=== PATIENT | female | born 1970 | race Caucasian/White ===

== ENCOUNTER → 2021-06-01 11:28 | Outpatient (CLI) | payer OTHER, SELFPAY ==
--- NOTE | ~2021-06-01 | MM_ITS ---
EXAMINATION: MM screening flaquita BI w aidan HISTORY: Screening TECHNIQUE: Craniocaudal and mediolateral oblique 3-D tomosynthesis images were obtained and synthetic 2-D images were generated. CAD analysis was submitted and interpreted. COMPARISON: Comparison to multiple prior studies sequentially, with oldest reviewed study dated 03/27. BREAST PARENCHYMAL COMPOSITION: The breasts are heterogenously dense, which may obscure small masses. FINDINGS: There is a mass in the upper inner quadrant of the right breast, middle third. The left maritza ast is stable without evidence for malignancy. IMPRESSION: 1. Mass in the upper inner quadrant of the right breast, middle third. 2. Additional mammographic views and possible breast ultrasound are recommended. BI-RADS Category 0: Incomplete: Needs additional imaging evaluation. Reviewed, dictated and finalized at location A. BULATORY CARE COORDINATOR IMPRESSION: 1. Mass in the upper inner quadrant of the right breast, middle third. 2. Additional mammographic views and possible breast ultrasound are recommended . BI-RADS Category 0: Incomplete: Needs additional imaging evaluation.
== END ==
PROVIDERS: Visit Provider Nurse Practitioner Obstetrics & Gynecology
DX: Z12.31 Encounter for screening mammogram for malignant neoplasm of breast (principal); R92.8 Other abnormal and inconclusive findings on diagnostic imaging of breast
CPT/HCPCS: 77063; 77067

== ENCOUNTER → 2021-06-24 08:46 | Outpatient (CLI) | payer OTHER, SELFPAY ==
--- NOTE | ~2021-06-24 | MMUS_ITS ---
EXAMINATION: MM diagnostic flaquita RT w aidan, US breast RT limited HISTORY: Follow-up right breast mass TECHNIQUE: Additional 3-D tomosynthesis images of the right breast were performed and synthetic 2-D i mages were generated. CAD analysis was submitted and interpreted. High resolution Limited right breas t ultrasound was performed. COMPARISON: Comparison to multiple prior studies sequentially, with oldest reviewed study dated 03/28. BREAST PARENCHYMAL COMPOSITION: The breasts are heterogenously dense, which may obscure small masses. FINDINGS: MAMMOGRAPHIC FINDINGS: There is a mass in the upper slightly inner aspect of the right breast measuring 5.5 x 2.8 cm with ce ntral areas of lucency. There are no suspicious calcifications or architectural distortion. ULTRASOUND: Limited right breast ultrasound: At 1:00, 4 cm from the nipple there is a hypoechoic circumscribed ov al mass with parallel orientation, posterior acoustic enhancement and no internal vascularity measuri ng 3.3 x 1.3 x 3.6 cm corresponding to the mammographic finding. No other discrete masses are identif ied. IMPRESSION: 1. Solid-appearing oval hypoechoic mass of the right breast at 1:00, 4 cm from the nipple. 2. Ultrasound-guided right breast biopsy recommended. BI-RADS category 4, suspicious findings. Reviewed, dictated and finalized at location A. CTOR OF MEDICAL REVIEW IMPRESSION: 1. Solid-appearing oval hypoechoic mass of the right breast at 1:00, 4 cm from the nipple. 2. Ultrasound-guided right breast biopsy recommended. BI-RADS category 4, suspicious findings.
== END ==
PROVIDERS: Visit Provider Nurse Practitioner Obstetrics & Gynecology
DX: N63.12 Unspecified lump in the right breast, upper inner quadrant (principal)
CPT/HCPCS: 76642; 77061; 77065; G0279

== ENCOUNTER → 2023-08-23 11:23 | Outpatient (CLI) | payer BC, SELFPAY ==
--- NOTE | ~2023-08-23 | MM_ITS ---
EXAMINATION: MM screening flaquita BI w aidan HISTORY: Screening. History of benign biopsy in 2021. TECHNIQUE: Craniocaudal and mediolateral oblique 3-D tomosynthesis images were obtained and synthetic 2-D images were generated. CAD analysis was submitted and interpreted. COMPARISON: Comparison to multiple prior studies sequentially, with oldest reviewed study dated 10/2017. BREAST PARENCHYMAL COMPOSITION: Dense: The breasts are heterogeneously dense, which may obscure small masses FINDINGS: Stable mass of the right breast located in the upper inner quadrant, middle third. There is associated tissue marker consistent with interval benign biopsy. There are no new masses, calcificat ions or architectural distortion in either breast to suggest malignancy. IMPRESSION: 1. No mammographic evidence of malignancy. Stable benign right breast mass. 2. Recommend routine screening mammography in one year. BI-RADS Category 2: Benign finding(s). Reviewed, dictated and finalized at location A. INE WORKER
== END ==
PROVIDERS: PCP Family Medicine; Visit Provider Family Medicine
DX: Z12.31 Encounter for screening mammogram for malignant neoplasm of breast (principal)
CPT/HCPCS: 77063; 77067

== ENCOUNTER 2024-11-15 11:37 | Outpatient (CLI) | payer OTHER, SELFPAY ==
--- NOTE | ~2024-11-15 | MM_ITS ---
EXAMINATION: MM screening flaquita BI w aidan HISTORY: Screening TECHNIQUE: Craniocaudal and mediolateral oblique 3-D tomosynthesis images were obtained and synthetic 2-D images were generated. CAD analysis was submitted and interpreted. COMPARISON: Comparison to multiple prior studies sequentially, with oldest reviewed study dated 09/2018. BREAST PARENCHYMAL COMPOSITION: Dense: The breasts are heterogeneously dense, which may obscure small masses FINDINGS: The left breast is stable without evidence for malignancy. There is a stable mass in the upper inner quadrant of the right breast with tissue marker from previo us benign biopsy. There is a new mass in the upper outer quadrant of the right breast, middle third, seen on CC view. IMPRESSION: 1. New right breast mass, upper outer quadrant, middle third. 2. Additional mammographic views and possible breast ultrasound are recommended. BI-RADS Category 0: Incomplete: Needs additional imaging evaluation. Reviewed, dictated and finalized at location B. IMPRESSION: 1. New right breast mass, upper outer quadrant, middle third. 2. Additional mammographic views and possible breast ultrasound are recommended . BI-RADS Category 0: Incomplete: Needs additional imaging evaluation.
== END 2024-11-15 11:38 | disposition home or self-care (01) ==
LOC: MICIMG 11:39
PROVIDERS: PCP Obstetrics & Gynecology; Visit Provider Obstetrics & Gynecology
DX: Z12.31 Encounter for screening mammogram for malignant neoplasm of breast (principal); R92.8 Other abnormal and inconclusive findings on diagnostic imaging of breast
CPT/HCPCS: 77063; 77067

== ENCOUNTER 2024-12-03 08:17 | Outpatient (CLI) | payer OTHER, SELFPAY ==
--- NOTE | ~2024-12-03 | MMUS_ITS ---
EXAMINATION: MM diagnostic flaquita RT w aidan, US breast RT complete HISTORY: Follow-up new right breast mass. TECHNIQUE: Additional 3-D tomosynthesis images of the right breast were performed and synthetic 2-D i mages were generated. CAD analysis was submitted and interpreted. High resolution complete right tk st ultrasound was performed. COMPARISON: Comparison to multiple prior studies sequentially, with oldest reviewed study dated 09/2018. BREAST PARENCHYMAL COMPOSITION: Dense: The breasts are extremely dense, which lowers the sensitivity of mammography. FINDINGS: MAMMOGRAPHIC FINDINGS: There is a new mass in the upper outer quadrant of the right breast, middle third, best seen on CC vi ew. There is a large stable mass in the upper inner quadrant of the right breast with associated tiss ue marker from previous benign biopsy. This is stable. ULTRASOUND: Complete US of all 4 quadrants of the breast/s and retroareolar region was reviewed. Right breast: At 12:00, 5 cm from the nipple there is an oval hypoechoic mass with parallel orientati on measuring 2.8 x 1.7 x 3.2 cm, unchanged from prior examination. It was described at 1:00, 4 cm fro m the nipple on prior examination. At 10:00, 5 cm from the nipple there is an oval slightly irregular shaped hypoechoic mass measuring 11 x 11 x 7 mm with mixed posterior attenuation and no significant internal vascularity. This corresponds to the new mammographic mass. IMPRESSION: 1. New right breast mass at 10:00, 5 cm from the nipple measuring 11 mm. 2. Ultrasound-guided right breast biopsy recommended. BI-RADS category 4, suspicious findings. Reviewed, dictated and finalized at location [] IMPRESSION: 1. New right breast mass at 10:00, 5 cm from the nipple measuring 11 mm. 2. Ultrasound-guided right breast biopsy recommended. BI-RADS category 4, suspicious findings.
== END 2024-12-03 08:18 | disposition home or self-care (01) ==
PROVIDERS: PCP Student in an Organized Health Care Education/Training Program; Visit Provider Student in an Organized Health Care Education/Training Program
DX: R92.8 Other abnormal and inconclusive findings on diagnostic imaging of breast (principal); N63.11 Unspecified lump in the right breast, upper outer quadrant; R92.2 Inconclusive mammogram
CPT/HCPCS: 76641; 77061; 77065; G0279

== ENCOUNTER 2025-01-08 08:19 | Outpatient (CLI) | payer OTHER, SELFPAY ==
--- NOTE | ~2025-01-08 | MMUS_ITS ---
US breast biopsy RT w image, MM post biopsy diagnostic RT 01/08/2025 09:15 (accession [id number]), 01/08/2025 09:13 (accession [id number]) EXAMINATION: US GUIDED NEEDLE BIOPSY WITH VACUUM ASSISTANCE DATE: 01/08/2025 09:21 CDT INDICATION: New right breast mass seen on prior examination. Ultrasound-guided core biopsy is reques juan antonio to evaluate for malignancy. BREAST PARENCHYMAL COMPOSITION: Dense: The breasts are heterogeneously dense, which may obscure small masses TECHNIQUE AND FINDINGS: The risks and potential benefits of the procedure were discussed with the patient, and written inform ed consent was obtained. After sterile preparation of the right breast, 1% lidocaine was utilized fo r local anesthesia. 1% lidocaine with epinephrine was used for deep anesthesia. A 10G vacuum-assisted biopsy gun needle was advanced through to the outer edge of the region of inter est from a superior approach utilizing sonographic guidance. A total of 4 tissue core samples were o btained through the lesion. An Inrad tissue marker clip was then placed at the biopsy site. Hemostas is was achieved. The patient tolerated procedure well and there was no evidence of immediate complication. The patien t was given verbal instructions partly is from the department. Right breast mammograms to document t issue marker clip placement. The tissue samples were submitted to surgical pathology for histologic a nalysis. IMPRESSION: 1. Successful ultrasound-guided vacuum-assisted biopsy of right breast mass with post procedure mamm ogram for marker placement. Please refer to pathology report for histologic analysis. Reviewed, dictated and finalized at location [] IMPRESSION: 1. Successful ultrasound-guided vacuum-assisted biopsy of right breast mass wi th post procedure mammogram for marker placement. Please refer to pathology rep ort for histologic analysis.
--- OUTSIDE RECORDS SUMMARY | 2025-01-08 08:29 | XMS_ITS | Data Portability ---
Author Organization 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 Patient will come back in a year unless there are new symptoms. [email or web address] Not available 05/13/2021 10:32:00 05/02/2024 05/02/2024 Annual gynecological exam performed. Patient will come back in a year unless there are new symptoms. [email or web address] Not available 04/16/2024 11:52:32 Plan of Treatment Reminders Order Date Submit Date Provider Last Modified By Organization Details Last Modified Time Details Appointments None recorded. Lab pap, IG + HR HPV - HPV regardless but if HPV is positive need subtyping 16,18/45 2023 024 [facility] (Lab), [address], [place], [address], 5 05:01:21 lipid panel, blood 2023 024 [facility] (Lab), [address], [place], [address], 4 10:48:47 CBC w/ auto diff 2023 024 [facility] (Lab), [address] [place], [address], 4 10:48:45 TSH, serum or plasma 2023 024 [facility] (Lab), [address], [place], [address], 4 10:48:46 HbA1c (hemoglobin A1c), blood 2023 024 [facility] (Lab), [address], [place], [address], 4 10:48:48 CMP, serum or plasma 2023 024 [facility] (Lab), [address], [place], [address], 4 10:48:46 pap, IG + HR HPV - HPV regardless but if HPV is positive need subtyping 16,18/45 2023 024 [facility] (Lab), [address], [place], [address], 4 13:04:16 25-hydroxyv itamin D2 + 25-hydroxyv itamin D3, QN, serum or plasma 2023 024 [facility] (Lab), [address], [place], [address], 4 10:48:47 lipid panel, blood 2020 [facility] (Lab), [address], [place], [address], 1 03:40:27 CBC w/ auto diff 2020 021 [facility] (Lab), [address], [place], [address], 1 03:40:28 CMP, serum or plasma 2020 [facility] (Lab), [address], [place], [address], 1 03:40:27 vitamin D, 25-hydroxy, total, serum 2020 021 [facility] (Lab), [address], [place], [address], 03:40:28 HbA1c (hemoglobin A1c), blood 2020 021 [facility] (Lab), [address], [place], [address], 03:40:29 TSH, serum or plasma 2020 021 [facility] (Lab), [address], [place], [address], 03:40:28 Referral None recorded. Procedures None recorded. Surgeries None recorded. Imaging MAMMO, screening, digital, bilateral 2023 024 [facility], [address], [place] [address], [place], [address], 5 05:01:21 Medication Orders None recorded. Patient TargetsNo targets recorded. Patient InstructionsNo instructions recorded. Reason for Referral None Reported. Results Created Date Observation Date Name Description Value Unit Range Abnormal Flag Note LastModifiedBy Organization Detail LastModifiedTime 05/13/2005/13/2021 LIPID PANEL ,AMA (LDL- CALC) total cholesterol 189 mg/dL 0-199 Not Available [facility] (Lab) [address], [place], [address], 05/14/2021 03:40:27 05/13/20 21 05/13/2021 LIPID PANEL ,AMA (LDL- CALC) triglyceride s 89 mg/dL 0.00-1 50.00 NCEP Refer ence Value s for Trigl yceri elvis: Ayesha l: <150 mg/dL Borde rline High: 150 - 199 mg/dL High: 200 - 499 mg/dL Very High: >/= 500 mg/dL Not Available [facility] (Lab) [address] , [place], [address], 05/14/2021 03:40:27 05/13/20 21 05/13/2021 LIPID PANEL ,AMA (LDL- CALC) HDL cholesterol 48 mg/dL >40 Not Available [facility] (Lab) [address], [place], [address], 05/14/2021 03:40:27 05/13/20 21 05/13/2021 LIPID PANEL ,AMA (LDL- CALC) LDL cholesterol 123 mg/dL 0-99 high Cutof f value s recom sofia d by the Natio nal Arleth stero l Educa tion Progr am: MANDEEP ABLE: Arleth stero l <200 mg/dL LDL <100 mg/dL BORDE RLINE : Arleth stero l 200-2 39 mg/dL LDL 101-1 59 mg/dL HIGHE R RISK: Arleth stero l >240 mg/dL LDL >160 mg/dL , HDL <40 mg/dL Not Available [facility] (Lab) [address], [place], [address], 05/14/2021 03:40:27 05/13/20 21 05/13/2021 LIPID PANEL ,AMA (LDL- CALC) non-HDL cholesterol 141 mg/dL no refere nce range A reaso nable goal for non-H DL arleth stero l is one that is 30 mg/dL highe r than the LDL arleth stero l goal. Not Available [facility] (Lab) [address], [place], [address], 05/14/2021 03:40:27 05/13/20 21 05/13/2021 LIPID PANEL ,AMA (LDL- CALC) chol/HDL ratio 3.9 . 0.0-5. 0 Not Available [facility] (Lab) [address], [place], [address], 05/14/2021 03:40:27 05/13/20 21 05/13/2021 CMP(C OMPRE HENSI VE METAB OLIC PANEL ) sodium 138 mmol/ L 133-14 6 Not Available [facility] (Lab) [address], [place], [address], 05/14/2021 03:40:27 05/13/20 21 05/13/2021 CMP(C OMPRE HENSI VE METAB OLIC PANEL ) potassium 4.1 mmol/ L 3.5-5. 1 Not Available [facility] (Lab) [address], [place], [address], 05/14/2021 03:40:27 05/13/20 21 05/13/2021 CMP(C OMPRE HENSI VE METAB OLIC PANEL ) chloride 101 mmol/ L 98-107 Not Available [facility] (Lab) [address], [place], [address], 05/14/2021 03:40:27 05/13/20 21 05/13/2021 CMP(C OMPRE HENSI VE METAB OLIC PANEL ) carbon dioxide 29 mmol/ L 21-31 Not Available [facility] (Lab) [address], [place], [address], 05/14/2021 03:40:27 05/13/20 21 05/13/2021 CMP(C OMPRE HENSI VE METAB OLIC PANEL ) anion gap 8 mmol/ L 4-13 Not Available [facility] (Lab) [address], [place], [address], 05/14/2021 03:40:27 05/13/20 21 05/13/2021 CMP(C OMPRE HENSI VE METAB OLIC PANEL ) blood urea nitrogen 13 mg/dL 7-25 Not Available [facility] (Lab) [address], [place], [address], 05/14/2021 03:40:27 05/13/20 21 05/13/2021 CMP(C OMPRE HENSI VE METAB OLIC PANEL ) creatinine 1.01 mg/dL 0.60-1 .30 Not Available [facility] (Lab) [address], [place], [address], 05/14/2021 03:40:27 05/13/20 21 05/13/2021 CMP(C OMPRE HENSI VE METAB OLIC PANEL ) egfrcr (CKD-epi 2020) 69 mL/mi n/1.7 3_m2 >=60 Not Available [facility] (Lab) [address], [place], [address], 05/14/2021 03:40:27 05/13/20 21 05/13/2021 CMP(C OMPRE HENSI VE METAB OLIC PANEL ) calcium 9.2 mg/dL 8.3-10 .5 Not Available [facility] (Lab) [address], [place], [address], 05/14/2021 03:40:27 05/13/20 21 05/13/2021 CMP(C OMPRE HENSI VE METAB OLIC PANEL ) glucose 90 mg/dL 70-100 Not Available [facility] (Lab) [address], [place], [address], 05/14/2021 03:40:27 05/13/20 21 05/13/2021 CMP(C OMPRE HENSI VE METAB OLIC PANEL ) protein, total 6.6 g/dL 6.4-8. 3 Not Available [facility] (Lab) [address], [place], [address], 05/14/2021 03:40:27 05/13/20 21 05/13/2021 CMP(C OMPRE HENSI VE METAB OLIC PANEL ) albumin 4.3 g/dL 3.5-5. 0 Not Available [facility] (Lab) [address], [place], [address], 05/14/2021 03:40:27 05/13/20 21 05/13/2021 CMP(C OMPRE HENSI VE METAB OLIC PANEL ) ALT 8 units /L 9-43 low Not Available [facility] (Lab) [address] [place], [address], 05/14/2021 03:40:27 05/13/20 21 05/13/2021 CMP(C OMPRE HENSI VE METAB OLIC PANEL ) alkaline phosphatase 47 units /L 34-104 Not Available [facility] (Lab) [address], [place], [address], 05/14/2021 03:40:27 05/13/20 21 05/13/2021 CMP(C OMPRE HENSI VE METAB OLIC PANEL ) AST 12 units /L 13-39 low Not Available [facility] (Lab) [address], [place], [address], 05/14/2021 03:40:27 05/13/20 21 05/13/2021 CMP(C OMPRE HENSI VE METAB OLIC PANEL ) bilirubin, total 0.6 mg/dL 0.2-1. 2 Not Available [facility] (Lab) [address] [place], [address], 05/14/2021 03:40:27 05/13/20 21 05/13/2021 TSH, REFLE X FREE T4 TSH 1.92 uIU/m L 0.30-5 .33 Not Available [facility] (Lab) [address] [place], [address], 05/14/2021 03:40:27 05/13/20 21 05/13/2021 VITAM IN D, 25-OH (TOTA L D2/D3 ) vitamin D, 25-hydroxy, total 46.1 NG/mL 30-80 NOTE: Defic iency : <20 ng/mL Insuf ficie ncy: 20-29 ng/mL Optim um Level : 30-80 ng/mL Possi ble Toxic ity: >80 ng/mL Most patie nts with toxic ity have level s >150 ng/mL . Not Available [facility] (Lab) [address] [place], [address], 05/14/2021 03:40:28 05/13/20 21 05/13/2021 CBC W/DIF F WBC 5.3 10'3/ uL 3.6-10 .2 Not Available [facility] (Lab) [address], [place], [address], 05/14/2021 03:40:28 05/13/20 21 05/13/2021 CBC W/DIF F RBC 4.70 10'6/ uL (based on docume nted legal sex) 4.10-5 .30 Not Available [facility] (Lab) [address], [place], [address], 05/14/2021 03:40:28 05/13/20 21 05/13/2021 CBC W/DIF F HGB 13.3 g/dL (based on docume nted legal sex) 11.9-1 5.8 Not Available [facility] (Lab) [address], [place], [address], 05/14/2021 03:40:28 05/13/20 21 05/13/2021 CBC W/DIF F HCT 41.4 % (based on docume nted legal sex) 37.4-4 8.3 Not Available [facility] (Lab) [address], [place], [address], 05/14/2021 03:40:28 05/13/20 21 05/13/2021 CBC W/DIF F MCV 89.0 fL 82.0-9 9.0 Not Available [facility] (Lab) [address], [place], [address], 05/14/2021 03:40:28 05/13/20 21 05/13/2021 CBC W/DIF F MCH 28.0 pg 27.0-3 3.0 Not Available [facility] (Lab) [address], [place], [address], 05/14/2021 03:40:28 05/13/20 21 05/13/2021 CBC W/DIF F MCHC 32.0 g/dL 32.0-3 6.0 Not Available [facility] (Lab) [address], [place], [address], 05/14/2021 03:40:28 05/13/20 21 05/13/2021 CBC W/DIF F RDW 13.0 % 11.0-1 5.0 Not Available [facility] (Lab) [address], [place], [address], 05/14/2021 03:40:28 05/13/20 21 05/13/2021 CBC W/DIF F plt 248 10'3/ uL 150-45 0 Not Available [facility] (Lab) [address], [place], [address], 05/14/2021 03:40:28 05/13/20 21 05/13/2021 CBC W/DIF F MPV 10.8 fL 9.8-12 .7 Not Available [facility] (Lab) [address], [place], [address], 05/14/2021 03:40:28 05/13/20 21 05/13/2021 CBC W/DIF F NRBC's 0.00 % 0 Not Available [facility] (Lab) [address], [place], [address], 05/14/2021 03:40:28 05/13/20 21 05/13/2021 CBC W/DIF F absolute NRBCs 0.0 10'3/ uL 0 Not Available [facility] (Lab) [address], [place], [address], 05/14/2021 03:40:28 05/13/20 21 05/13/2021 CBC W/DIF F neutrophils 59.0 % 37.0-7 2.0 Not Available [facility] (Lab) [address], [place], [address], 05/14/2021 03:40:28 05/13/20 21 05/13/2021 CBC W/DIF F lymphocytes 29.0 % 16.0-4 8.0 Not Available [facility] (Lab) [address], [place], [address], 05/14/2021 03:40:28 05/13/20 21 05/13/2021 CBC W/DIF F monocytes 9.0 % 4.0-14 .0 Not Available [facility] (Lab) [address], [place], [address], 05/14/2021 03:40:28 05/13/20 21 05/13/2021 CBC W/DIF F eosinophils 2.0 % 0.0-9. 0 Not Available [facility] (Lab) [address], [place], [address], 05/14/2021 03:40:28 05/13/20 21 05/13/2021 CBC W/DIF F basophils 1.0 % 0.0-2. 0 Not Available [facility] (Lab) [address], [place], [address], 05/14/2021 03:40:28 05/13/20 21 05/13/2021 CBC W/DIF F immature granulocytes 0.0 % no define d refere nce range Not Available [facility] (Lab) [address], [place], [address], 05/14/2021 03:40:28 05/13/20 21 05/13/2021 CBC W/DIF F absolute neutrophils 3.2 10'3/ uL 1.1-6. 0 Not Available [facility] (Lab) [address] [place], [address], 05/14/2021 03:40:28 05/13/20 21 05/13/2021 CBC W/DIF F absolute lymphocytes 1.5 10'3/ uL 0.7-3. 4 Not Available [facility] (Lab) [address], [place], [address], 05/14/2021 03:40:28 05/13/20 21 05/13/2021 CBC W/DIF F absolute monocytes 0.5 10'3/ uL 0.3-1. 0 Not Available [facility] (Lab) [address], [place], [address], 05/14/2021 03:40:28 05/13/20 21 05/13/2021 CBC W/DIF F absolute eosinophils 0.1 10'3/ uL 0.0-0. 6 Not Available [facility] (Lab) [address], [place], [address], 05/14/2021 03:40:28 05/13/20 21 05/13/2021 CBC W/DIF F absolute basophils 0.0 10'3/ uL 0.0-0. 1 Not Available [facility] (Lab) [address], [place], [address], 05/14/2021 03:40:28 05/13/20 21 05/13/2021 CBC W/DIF F absolute immature granulocytes 0.00 10'3/ uL 0.00-0 .10 05/14 1:55 AM: P indic ates parti al resul ts on a panel have been relea sed. Addit ional resul ts will follo w. 05/14 1:55 AM: This resul t has been final verif ied. No addit ional or garnt ed resul ts are expec juan antonio. Not Available [facility] (Lab) [address], [place], [address], 05/14/2021 03:40:28 05/13/20 21 05/13/2021 HEMOG LOBIN A1C hemoglobin A1C 5.6 % 0-5.6 The Ameri can [employer] arlene [employer] iatio n recom mends that a prima ry goal of theranatoly lerner be a HBA1C of < 7% and that physi cians tabatha d reeva luate the treat ment regim en in patie nts with HBA1C value s consi stent ly > 8%. 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 Elect álvaro diaz d by Thalia Qureshi , CT on 05/20 at 12:41 PM ----- ----- ----- ----- ----- ----- ----- ----- ----- ----- ----- ----- ----- ----- ----- ----- ----- ---- HPV RESUL TS: HPV mRNA E6/E7 : No HPV mRNA Detec juan antonio NOTE: This high risk HPV mRNA assay detec ts fourt een high- risk HPV types (16, 18, 31, 33, 35, 39, 45, 51, 52, 56, 58, 59, 66, 68) witho ut diffe renti ation . COMME NT: Note: This speci men was revie wed by a Cytot echno logis t and/o r Patho logis t (as indic ated in this repor t) after evalu ation using the Thinp rep Imagi ng Syste m. CLINI DIPAK INFOR MATIO N: Menst rual Statu s: LMP (if appli cable ): Clini dpiak Histo ry/Pr eviou s Pap: Type of Neopl tawanna (if appli cable ): Signi fican t Clini dipak Findi ngs: Other Histo ry: Hormo alfredito (if appli cable ): PAP EDUCA REGULO L NOTE: The Pap Test is a scree sherif test with an inher ent false negat ming rate. Liqui d-bas e sampl ing may decre ase, but will not elimi viridiana, false negat ming resul ts. A negat ming resul t does not precl ude the prese nce and/o r devel opmen t of disea se, since the prese nce of abnor mal cells in the sampl e depen ds on the locat ion of the lesio n and sampl ing techn ique. [place] nued regul ar scree sherif is the best metho d of cance r preve ntion . If repor juan antonio cytol ogic findi ng do not corre late with physi dipak and/o r histo rical findi ngs, furth er inves tigat ion is recom sofia d, as clini anish callahan nted. 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) . Elect álvaro lerner by Barbara Bourgeois, CT on 05/09 at 12:01 PM ----- ----- ----- ----- ----- ----- ----- ----- ----- ----- ----- ----- ----- ----- ----- ----- ----- ---- HPV RESUL TS: HPV mRNA E6/E7 : No HPV mRNA Detec juan antonio NOTE: This high risk HPV mRNA assay detec ts fourt een high- risk HPV types (16, 18, 31, 33, 35, 39, 45, 51, 52, 56, 58, 59, 66, 68) witho ut diffe renti ation . COMME NT: This speci men was revie wed by a Cytot echno logis t and/o r Patho logis t (as indic ated in this repor t) after evalu ation using the Thinp rep Imagi ng Syste m. CLINI DIPAK INFOR MATIO N: Menst rual Statu s: LMP (if appli cable ): Clini dipak Histo ry/Pr eviou s Pap: Type of Neopl tawanna (if appli cable ): Signi martina t Clini dipak Findi ngs: Other Histo ry: Hormo alfredito (if appli cable ): PAP EDUCA REGULO L NOTE: The Pap Test is a scree sherif test with an inher ent false negat ming rate. Liqui d-bas ed sampl ing may decre ase, but will not elimi viridiana, false negat ming resul ts. A negat ming resul t does not precl ude the prese nce and/o r devel opmen t of disea se, since the prese nce of abnor mal cells in the sampl e depen ds on the locat ion of the lesio n and sampl ing techn ique. [place] nued regul ar scree sherif is the best metho d of cance r preve ntion . If repor juan antonio cytol ogic findi ng do not corre late with physi dipak and/o r histo rical findi ngs, furth er inves tigat ion is recom sofia d, as clini anish callahan nted. Not Available [facility] (Lab) [address], [place], [address], 05/09/2024 13:04:16 05/08/20 24 05/08/2024 CBC W/DIF F WBC 6.0 10'3/ uL 3.5-10 .5 Not Available [facility] (Lab) [address], [place], [address], 05/09/2024 10:48:45 05/08/20 24 05/08/2024 CBC W/DIF F RBC 4.55 10'6/ uL (based on docume nted legal sex) 3.80-5 .20 Not Available [facility] (Lab) [address], [place], [address], 05/09/2024 10:48:45 05/08/20 24 05/08/2024 CBC W/DIF F HGB 12.9 g/dL (based on docume nted legal sex) 11.6-1 5.4 Not Available [facility] (Lab) [address], [place], [address], 05/09/2024 10:48:45 05/08/20 24 05/08/2024 CBC W/DIF F HCT 40.5 % (based on docume nted legal sex) 34.0-4 5.0 Not Available [facility] (Lab) [address], [place], [address], 05/09/2024 10:48:45 05/08/20 24 05/08/2024 CBC W/DIF F MCV 89.0 fL 80.0-9 9.0 Not Available [facility] (Lab) [address], [place], [address], 05/09/2024 10:48:45 05/08/20 24 05/08/2024 CBC W/DIF F MCH 28.4 pg 27.0-3 4.0 Not Available [facility] (Lab) [address], [place], [address], 05/09/2024 10:48:45 05/08/20 24 05/08/2024 CBC W/DIF F MCHC 31.9 g/dL 32.0-3 5.5 low Not Available [facility] (Lab) [address], [place], [address], 05/09/2024 10:48:45 05/08/20 24 05/08/2024 CBC W/DIF F RDW 13.3 % 11.0-1 5.0 Not Available [facility] (Lab) [address], [place], [address], 05/09/2024 10:48:45 05/08/20 24 05/08/2024 CBC W/DIF F plt 331 10'3/ uL 150-40 0 Not Available [facility] (Lab) [address], [place], [address], 05/09/2024 10:48:45 05/08/20 24 05/08/2024 CBC W/DIF F MPV 10.3 fL 8.8-12 .1 Not Available [facility] (Lab) [address], [place], [address], 05/09/2024 10:48:45 05/08/20 24 05/08/2024 CBC W/DIF F NRBC's 0.0 % 0.0 Not Available [facility] (Lab) [address], [place], [address], 05/09/2024 10:48:45 05/08/20 24 05/08/2024 CBC W/DIF F absolute NRBCs 0.0 10'3/ uL no refere nce range establ ished Not Available [facility] (Lab) [address], [place], [address], 05/09/2024 10:48:45 05/08/20 24 05/08/2024 CBC W/DIF F neutrophils 47.9 % 34.0-7 3.0 Not Available [facility] (Lab) [address], [place], [address], 05/09/2024 10:48:45 05/08/20 24 05/08/2024 CBC W/DIF F lymphocytes 39.6 % 15.0-5 0.0 Not Available [facility] (Lab) [address], [place], [address], 05/09/2024 10:48:45 05/08/20 24 05/08/2024 CBC W/DIF F monocytes 7.6 % 1.0-15 .0 Not Available [facility] (Lab) [address], [place], [address], 05/09/2024 10:48:45 05/08/20 24 05/08/2024 CBC W/DIF F eosinophils 3.5 % 0.0-8. 0 Not Available [facility] (Lab) [address], [place], [address], 05/09/2024 10:48:45 05/08/20 24 05/08/2024 CBC W/DIF F basophils 1.2 % 0.0-2. 0 Not Available [facility] (Lab) [address] [facility], [place], [address], 05/09/2024 10:48:45 05/08/20 24 05/08/2024 CBC W/DIF F immature granulocytes 0.2 % no define d refere nce range Not Available [facility] (Lab) [address] [facility], [place], [address], 05/09/2024 10:48:45 05/08/20 24 05/08/2024 CBC W/DIF F absolute neutrophils 2.9 10'3/ uL 1.5-8. 0 Not Available [facility] (Lab) [address] [facility] [address], [place], [address], 05/09/2024 10:48:45 05/08/20 24 05/08/2024 CBC W/DIF F absolute lymphocytes 2.4 10'3/ uL 1.0-4. 0 Not Available [facility] (Lab) [address] [facility], [place], [address], 05/09/2024 10:48:45 05/08/20 24 05/08/2024 CBC W/DIF F absolute monocytes 0.5 10'3/ uL 0.2-1. 0 Not Available [facility] (Lab) [address] [facility], [place], [address], 05/09/2024 10:48:45 05/08/20 24 05/08/2024 CBC W/DIF F absolute eosinophils 0.2 10'3/ uL 0.0-0. 6 Not Available [facility] (Lab) [address] [facility], [place], [address], 05/09/2024 10:48:45 05/08/20 24 05/08/2024 CBC W/DIF F absolute basophils 0.1 10'3/ uL 0.0-0. 3 Not Available [facility] (Lab) [address] [facility], [place], [address], 05/09/2024 10:48:45 05/08/20 24 05/08/2024 CBC W/DIF F absolute immature granulocytes 0.0 10'3/ uL 0.00-0 .10 05/09 2:49 AM: P indic ates parti al resul ts on a panel have been relea sed. Addit ional resul ts will follo w. 05/09 2:49 AM: This resul t has been final verif ied. No addit ional or grant ed resul ts are expec [place]an [place]. Not Available [facility] (Lab) [address] [facility], [place], [address], 05/09/2024 10:48:45 05/08/20 24 05/08/2024 TSH, REFLE X FREE T4 TSH 1.88 uIU/m L 0.30-5 .33 Not Available [facility] (Lab) [address] [facility], [place], [address], 05/09/2024 10:48:46 05/08/20 24 05/08/2024 CMP(C OMPRE HENSI VE METAB OLIC PANEL ) sodium 139 mmol/ L 133-14 6 Not Available [facility] (Lab) [address] [facility], [place], [address], 05/09/2024 10:48:46 05/08/20 24 05/08/2024 CMP(C OMPRE HENSI VE METAB OLIC PANEL ) potassium 4.4 mmol/ L 3.5-5. 1 Not Available [facility] (Lab) [address] [facility], [place], [address], 05/09/2024 10:48:46 05/08/20 24 05/08/2024 CMP(C OMPRE HENSI VE METAB OLIC PANEL ) chloride 103 mmol/ L 98-107 Not Available [facility] (Lab) [address] [facility], [place], [address], 05/09/2024 10:48:46 05/08/20 24 05/08/2024 CMP(C OMPRE HENSI VE METAB OLIC PANEL ) carbon dioxide 29 mmol/ L 21-31 Not Available [facility] (Lab) [address] [facility], [place], [address], 05/09/2024 10:48:46 05/08/20 24 05/08/2024 CMP(C OMPRE HENSI VE METAB OLIC PANEL ) anion gap 7 mmol/ L 4-13 Not Available [facility] (Lab) [address], [place], [address], 05/09/2024 10:48:46 05/08/20 24 05/08/2024 CMP(C OMPRE HENSI VE METAB OLIC PANEL ) blood urea nitrogen 16 mg/dL 7-25 Not Available [facility] (Lab) [address], [place], [address], 05/09/2024 10:48:46 05/08/20 24 05/08/2024 CMP(C OMPRE HENSI VE METAB OLIC PANEL ) creatinine 0.97 mg/dL 0.60-1 .30 Not Available [facility] (Lab) [address], [place], [address], 05/09/2024 10:48:46 05/08/20 24 05/08/2024 CMP(C OMPRE HENSI VE METAB OLIC PANEL ) egfrcr (CKD-epi 2020) 71 mL/mi n/1.7 3_m2 >=60 Not Available [facility] (Lab) [address], [place], [address], 05/09/2024 10:48:46 05/08/20 24 05/08/2024 CMP(C OMPRE HENSI VE METAB OLIC PANEL ) calcium 9.0 mg/dL 8.3-10 .5 Not Available [facility] (Lab) [address] [place], [address], 05/09/2024 10:48:46 05/08/20 24 05/08/2024 CMP(C OMPRE HENSI VE METAB OLIC PANEL ) glucose 85 mg/dL 70-100 Not Available [facility] (Lab) [address], [place], [address], 05/09/2024 10:48:46 05/08/20 24 05/08/2024 CMP(C OMPRE HENSI VE METAB OLIC PANEL ) protein, total 6.6 g/dL 6.4-8. 3 Not Available [facility] (Lab) [address], [place], [address], 05/09/2024 10:48:46 05/08/20 24 05/08/2024 CMP(C OMPRE HENSI VE METAB OLIC PANEL ) albumin 4.1 g/dL 3.5-5. 0 Not Available [facility] (Lab) [address], [place], [address], 05/09/2024 10:48:46 05/08/20 24 05/08/2024 CMP(C OMPRE HENSI VE METAB OLIC PANEL ) ALT 9 units /L 9-43 Not Available [facility] (Lab) [address], [place], [address], 05/09/2024 10:48:46 05/08/20 24 05/08/2024 CMP(C OMPRE HENSI VE METAB OLIC PANEL ) alkaline phosphatase 59 units /L 34-104 Not Available [facility] (Lab) [address], [place], [address], 05/09/2024 10:48:46 05/08/20 24 05/08/2024 CMP(C OMPRE HENSI VE METAB OLIC PANEL ) AST 12 units /L 13-39 low Not Available [facility] (Lab) [address], [place], [address], 05/09/2024 10:48:46 05/08/20 24 05/08/2024 CMP(C OMPRE HENSI VE METAB OLIC PANEL ) bilirubin, total 0.5 mg/dL 0.2-1. 2 Not Available [facility] (Lab) [address], [place], [address], 05/09/2024 10:48:46 05/08/20 24 05/08/2024 VITAM IN D, 25-OH (TOTA L D2/D3 ) vitamin D, 25-hydroxy, total 23.1 NG/mL 30.0-1 00.0 low Sugge stive of Defic iency : <20 ng/mL Sugge stive of Insuf ficie ncy: 20-29 ng/mL Sugge stive of Suffi cienc y: 30-10 0 ng/mL Sugge stive of Toxic ity: >150 ng/mL Not Available [facility] (Lab) [address] [place], [address], 05/09/2024 10:48:47 05/08/20 24 05/08/2024 LIPID PANEL ,AMA (LDL- CALC) total cholesterol 198 mg/dL 0-199 Not Available [facility] (Lab) [address] [place], [address], 05/09/2024 10:48:47 05/08/20 24 05/08/2024 LIPID PANEL ,AMA (LDL- CALC) triglyceride s 138 mg/dL 0-150 NCEP Refer ence Value s for Trigl yceri elvis: Ayesha l: <150 mg/dL Borde rline High: 150 - 199 mg/dL High: 200 - 499 mg/dL Very High: >/= 500 mg/dL Not Available [facility] (Lab) [address] [place], [address], 05/09/2024 10:48:47 05/08/20 24 05/08/2024 LIPID PANEL ,AMA (LDL- CALC) HDL cholesterol 54 mg/dL >40 Not Available [facility] (Lab) [address] [place], [address], 05/09/2024 10:48:47 05/08/20 24 05/08/2024 LIPID PANEL ,AMA (LDL- CALC) LDL cholesterol 118 mg/dL 0-99 high Unabl e to repor t calcu lated LDL. Cutof f value s recom sofia d by the Natio nal [facility] [employer] Educa tion Progr am: MANDEEP ABLE: Arleth stero l <200 mg/dL LDL <100 mg/dL BORDE RLINE : Arleth stero l 200-2 39 mg/dL LDL 101-1 59 mg/dL HIGHE R RISK: Arleth stero l >240 mg/dL LDL >160 mg/dL , HDL <40 mg/dL Not Available [facility] (Lab) [address], [place], [address], 05/09/2024 10:48:47 05/08/2005/08/2024 LIPID PANEL ,AMA (LDL- CALC) non-HDL cholesterol 144 mg/dL no refere nce range Unabl e to repor t calcu lated Non-H DL A reaso nable goal for non-H DL arleth stero l is one that is 30 mg/dL highe r than the LDL arleth stero l goal. Not Available [facility] (Lab) [address], [place], [address], 05/09/2024 10:48:47 05/08/2005/08/2024 LIPID PANEL ,AMA (LDL- CALC) chol/HDL ratio 3.7 . 0.0-5. 0 On October 19, 2022, [facility] labor atori es grant ed the equat ion for calcu latin g estim ated low-d ensit y lipop rotei n-cho leste rol (LDL- C) from the Mercedes martinez equat ion to the Jenae pathak/Jerry lopez equat ion. This new equat ion is only valid for lipid panel s with trigl yceri elvis < 400 mg/dL . Studi es have demon strat ed that this new equat ion will impro ve the accur acy of LDL-C , espec ially in scena ernandez when LDL-C dilan ntrat ions are relat ively low (< 100 mg/dL ), trigl yceri elvis are eleva juan antonio, or patie nt is non-f astin g. Refer ences : - Monroe Alvarado, Du Owusu , Sergio shah, Torsten Jones, Torsten chavez, Sebastian hairston , and Simon Smith . 2013. Comp ariso n of a Novel Metho d vs the Fried michelle Equat ion for Estim ating Low-D ensit y Lipop rotei n Arleth stero l Level s from the Stand graciela Lipid Profadri meza. NAREN: The Journ al of the Ameri can Medic al Assoc iatio n 310 (19): 2060- . - Adeline li ar V, Alysa J, Ronny ar A, Miles M, Eric e R, Michelle ar E, Zach hairston RS, Luis SR, Jenae pathak SS. Fast ing Versu s Nonfa sting and Low-D ensit y Lipop rotei n Arleth stero l Accur acy. Circu latio n. 2017Jun 28;137 (1):1 0-19. Not Available [facility] (Lab) [address], [place], [address], 05/09/2024 10:48:47 05/08/20 24 05/08/2024 HEMOG LOBIN A1C hemoglobin A1C 5.3 % 0-5.6 The Ameri can Diabe arlene Assoc iatio n recom mends that a prima ry goal of thera py shoul d be a HBA1C of < 7% and that physi cians shoul d reeva luate the treat ment regim en in patie nts with HBA1C value s consi stent ly > 8%. <5.7% Ayesha l 5.7 - 6.4% Incre ased risk for diabe arlene >=6.5 % Diagn ostic of diabe arlene <7.0% Goal of thera py >8.0% Actio n sugge sted Not Available [facility] (Lab) [address], [place], [address], 05/09/2024 10:48:48 06/01/20 21 06/01/2021 MAMMO , scree sherif, bilat eral No observ ation record ed. DA[facility] [address], [place], [address], 06/08/2021 14:15:33 06/01/20 21 06/01/2021 MAMMO , scree sherif, bilat eral No observ ation record ed. [facility] [address], [place], [address], 06/01/2021 18:08:21 06/04/20 21 06/01/2021 MAMMO , scree sherif, bilat eral No observ ation record ed. [facility] [address], [place], [address], 06/08/2021 11:19:58 06/04/20 21 06/01/2021 MAMMO , scree sherif, bilat eral No observ ation record ed. [facility] [address], [place], [address], 06/08/2021 11:18:55 06/24/20 21 06/24/2021 MAMMO , diagn ostic , unila teral No observ ation record ed. [facility] [address], [place], [address], 06/29/2021 14:26:58 07/29/19 22 06/24/2021 MAMMO , diagn ostic , unila teral No observ ation record ed. [email or web address] [facility] [address], [place], [address], 07/29/2021 16:06:31 11/16/19 25 11/15/2024 US, igor t, unila teral No observ ation record ed. [email or web address] [place] [address] [address], [place], [address], 01/04/2025 10:06:41 11/17/19 25 11/15/2024 MAMMO , scree sherif, digit al, bilat eral No observ ation record ed. [email or web address] [facility] [address], [place], [address], 11/22/2024 16:58:02 12/04/19 25 12/03/2024 MAMMO , diagn ostic , unila teral No observ ation record ed. [email or web address] [facility] [address], [place], [address], 01/04/2025 10:06:41 12/05/19 25 12/03/2024 MAMMO , diagn ostic , unila teral No observ ation record ed. [email or web address] [facility] [address], [place], [address], 12/04/2024 11:14:00 Result Notes None recorded. Problems Name Problem SNOMED Code Status Onset Date Resolution Date Notes Provider Name and Address Organization Details Recorded Time Adult health examinat ion Completed 201405/12/2021 Routine general medical examinati on at a health care facility; [id number]:42 Speciali zed medical examinat ion Completed 201405/12/2021 Routine gynecolog ical examinati on;Practi ce ID: 0001 Sunshine Hinson [facility] 17:41:53 Screenin g for malignan t neoplasm of cervix Completed 201405/12/2021 Pap Smear;Pra ctice ID: 0001 Sunshine ellington [facility] 17:41:47 Screenin g for malignan t neoplasm of rectum Completed 201405/12/2021 Screening for malignant neoplasms of the rectum;Pr actice ID: 0001 Sunshine ellington [facility] 17:41:[address] Concept Completed 201505/12/2021 Encntr for bee robber exam (general) (routine) w/o abn findings; Practice ID: 0001 Sunshine [facility] 17:41:51 Evaluati on finding [id number] Completed 201705/12/2021 Oth abn and inconclus ming findings on dx imaging of breast;Re corded Elsewhere : No Locati on: [facility] So urce: EHR Chron ic: N Practic e ID: [id number] Bill able Time: 09:23:19 AM Sunshine H[facility] 17:41:[address] Concept Completed 201605/12/2021 Encntr for general adult medical exam w/o abnormal findings; Recorded Elsewhere : No Locati on: [facility] So urce: EHR Chron ic: N Practic e ID: [id number] Bill able Time: 01:00:00 PM Sunshine [facility] 17:41:50 Urinary tract infectio us disease [id number] Completed 201205/12/2021 Urinary Tract Infection ;Recorded Elsewhere : No Locati on: [facility] So urce: EHR Chron ic: N Practic e ID: 0001 Bill able Time: 11:30:00 AM [facility] 17:41:55 Female genital organ symptoms [id number] Completed 201205/12/2021 Unspecifi ed symptom associate d with female genital organs;Re corded Elsewhere : No Locati on: [facility] So urce: EHR Chron ic: N Practic e ID: 0001 Bill able Time: 11:30:00 AM [facility] 17:41:45 Problem Notes None recorded. Procedures Surgical History Date Name Laterality Status Provider Name and Address Organization Details Recorded Time Date of Last Mammogram completed Margarita Hawkins [facility] 05/02/2024 10:35:31 1 Date of Last Pap Smear completed [facility] 05/02/2024 10:40:09 7 Caesarean Section completed [facility] 05/02/2024 10:41:47 Imaging Results None recorded. Procedure Notes None recorded. Medical Equipment None Reported. Allergies Allergen ID Allergen Name Allergen Category Reaction Reaction Severity Criticality Documentation Date Start Date Code Code System Note Provider Name and Address Organization Details Recorded Time 28443 sulfameth oxazole medicatio n Not available Not available Not available 06/13/2020 60791 RxNorm Comme nt: [facility]at [facility] sat[facility] e Agent : Bactr im; Sunshine [facility] 1 10:41:39 76777 trimethop rim medicatio n Not available Not available Not available 06/13/2020 49701 RxNorm Comme nt: [facility]at [facility] C[facility] sativ e Agent : Bactr im; [facility] 1 10:41:41 63911 cefprozil medicatio n Not available Not available Not available 06/13/2020 44449 RxNorm Comme nt: [facility]at [facility]; Not Available [facility] 0 14:18:00 49484 codeine medicatio n Not available Not available Not available 06/13/2020 2670 RxNorm Comme nt: [facility]at [facility]; Not Available [facility] 0 14:18:00 63741 Bactrim medicatio n Not available Not available Not available 05/13/2021 27608 9 RxNorm [facility] 1 10:41:37 Medications Name Sig Start Date Stop Date Status Note LastModified by Organization Details LastModified Time albuterol (bulk) powder 05/13 completed Prescribed Elsewhere: Yes Locati on: [facility] Mod cheo By: alanna Encounter DateTime: 09/20/2012 09:00:00 AM Not Available Not Available Not Available azithromyci n 250 mg tablet 05/13 completed Not Available Not Available Not Available ofloxacin 0.3 % eye drops 05/13 completed Not Available Not Available Not Available levofloxaci n 500 mg tablet 05/13 completed Not Available Not Available Not Available albuterol sulfate HFA 90 mcg/actuati on aerosol inhaler active Not Available Not Available Not Available Vitamins and Minerals tablet active Prescribed Elsewhere: Yes Locati on: [facility] Mod cheo By: milton reddy DateTime: 09/20/2011 01:30:00 PM Not Available Not Available Not Available iron ER 325 mg (65 mg iron) capsule,ext ended release 05/02 completed Prescribed Elsewhere: Yes Locati on: [facility] Mod cheo By: milton reddy DateTime: 09/20/2011 01:30:00 PM Not Available Not Available Not Available irbesartan active Not Available Not Av ailable Not Available Vitals Date Recorded Body height Body mass index (BMI) Body weight Systolic And Diastolic Provider Name and Address Organization Details Last Updated DateTime 05/02/2024 165.1 cm 27.5 kg/m2 74137.74 g 159/92 mm[Hg] Margarita Hawkins [facility] 05/02/2024 10:38:27 Date Recorded Systolic And Diastolic Provider Name and Address Organization Details Last Updated DateTime 05/13/2021 132/82 mm[Hg] Slime Worthington, [facility]- [address], [place], [address], [facility] 05/13/2021 11:06:04 Date Recorded Body height Body mass index (BMI) Body weight Provider Name and Address Organization Details Last Updated DateTime 05/13/2021 165.1 cm 26.3 kg/m2 41695.59 g Sunshine Hinson [facility] 05/13/2021 10:41:18 Social History Question Answer Notes LastModified by Organizat ion Details LastModified Time Are You Blind Or Do You Have Difficulty Seeing? No [email or web address] Information not available 05/02/2024 What Is Your Level Of Caffeine Consumption? Moderate [email or web address] Information not available 05/02/2024 How Much Tobacco Do You Chew? None [email or web address] Information not available 05/02/2024 In The 14 Days Before Symptom Onset, Have You Had Close Contact With A Laboratory-confirme d COVID-19 While That Case Was Ill? No [email or web address] Information n ot available 05/02/2024 In The 14 Days Before Symptom Onset, Have You Had Close Contact With A Person Who Is Under Investigation For COVID-19 While That Person Was Ill? No Information not available 05/02/2024 Have You Been To An Area Known To Be High Risk For COVID-19? No Information not available 05/02/2024 Are You Deaf Or Do You Have Serious Difficulty Hearing? No [email or web address] Information not available 05/02/2024 What Is The Highest Grade Or Level Of School You Have Completed Or The Highest Degree You Have Received? [id number] Information not available 05/02/2024 Do You Use Protection During Sex? Always [email or web address] Information not available 05/02/2024 Do You Use Your Seat Belt Or Car Seat Routinely? Yes [email or web address] Information not available 05/02/2024 Do You Have Smoke And Carbon Monoxide Detectors In Your Home? Yes [email or web address] Information not available 05/02/2024 How Much Tobacco Do You Smoke? No [email or web address] Information not available 05/02/2024 Have You Used IV Drugs? No [email or web address] Information not available 05/02/2024 Sex: Unknown Functional Status Question Answer Note LastModified by Organizat ion Details LastModified Time Do you use any illicit or recreational drugs? No [email or web address] Information not available 05/02/2024 What is your level of alcohol consumption? None Information not available 05/02/2024 What is your exercise level? Occasional [email or web address] Information not available 05/02/2024 Mental Status None recorded. Family History Relationship Description Onset Age of this Age Resolved Age Notes LastModified by Organization Details LastModified Time Mother Endometrial carcinoma [email or web address] Not available 2020 10:42:59 Mother Hypertensive disorder [email or web address] Not available 2020 10:43:07 Medical History No medical history recorded. Gynecological History Statement/Question Response Abnormal Pap N Date of Last Mammogram 07/28/2023 Flow Moderate Date of LMP 04/08/2024 On BCP's at Conception? N Was last menstrual period normal Y STIs/STDs N HPV Vaccine N Duration of Flow (days) 6 13 Current Control Method Condoms Age at First Child 33 Are cycles usually normal Y Sexually Active? Y Menses Monthly N Age of first menstrual cycle 15 Date of Last Pap Smear 05/13/2021 Sexual Problems? N LMP Approximate N Obstetrics History GPAL:G 2 P 0 0 0 2 Type Value Living 2 Total 2 Past Encounters Encounter ID Performer Location Encounter Start Date Encounter Closed Date Diagnosis/Indication Diagnosis SNOMED-CT Code Diagnosis ICD10 Code Diagnosis Note [id number] Slime Worthington , [facility] [address] [address] 05/13/2021 10:25:41 05/13/2021 11:49:55 Gynecologic examination 76611511 Z01.419 Suggested Calcium with Vitamin D 1200-1500m g daily. Patient advised to get an annual flu shot in the fall and she could obtain at [facility] or [facility] clinic. Also to obtain TDap vaccinatio n if you have not had one in the last 10 years. Recommend yearly mammograms . Encouraged monthly self breast exams. Encourage safe sexual practices, to use condoms and limit partners if not already in a monogamous relationsh ip. Engage in daily exercise of low impact aerobic exercise 45-60 minutes 4-5 times weekly. Avoid tobacco and illicit drugs as well as using moderation with alcohol intake less than 1-2 8 oz beverages daily. This lifestyle behavior pattern will lead to less health conditions and longer life span. If BMI greater than 25 weight watchers or dietary consult advised. All questions have been answered. Patient appears to understand informatio n, but if you have any questions please call or respond to this email.Pap/ hpv sentSTD declinedMa mmo orderedCol on-Discuss edPCPNo other issues or concerns Adult [facility] th examination [id number] Z00.00 [id number] Vito Cornejo MD [facility] [address] [address] 05/02/2024 10:29:06 05/02/2024 11:38:31 Gynecologic examination 70700708 Z01.419 Annual gynecologi dipak exam performed. Patient will come back in a year unless there are new symptoms. Suggest Calcium with Vitamin D if not eating in diet. Patient advised to get annual flu shot. Recommend yearly physicals and perform monthly breast exams. Genetic testing is available for patients with family history of cancer. Engage in safe sexual practices, use condoms. Encouraged to have daily exercise. Avoid tobacco and illicit drugs, moderation of alcohol. If BMI greater than 25 dietary consult advised. If you have any questions please call or email. mammogram- DUE - order given, pt to schedule colon cancer screening - DUE - pt prefers cologuard (denies FH of colon cancer) DEXA scan- n/a Pap smear- pap with HPV collected today laboratory evaluation - requested, pt to RTO for labs when fasting STI testing - declined Patient to continue to monitor cycles. Pt to call if twyla-menop ausal symptoms become bothersome . Pt BP elevated today, PCP manages BP medication . Recommende d that pt take BP at home at report any elevated readings to PCP. Screening mammography 24 313634 Z12.31 Fatigue 90228935 R53.83 Pt reports feeling fatigued more lately, requests vitamin D level to be checked. Health Concerns Section Related Observation LastModified by Organization Detai ls LastModified Time None Recorded Concern Status LastModified by Organization Details LastModified Time None Recorded Advance Directives Directive None Recorded Payers Insurance Date Sequence Insurance Name Policy Number Policy Corona Covered Member ID Corona Member ID Guarantor Name 05/01/2024 1 [facility] [id number] Colin Cristobal [id number] Meera Cristobal 05/02/2024 1 ALY [id number] [facility] [id number] [facility] Notes Date Note Type Note Provider Name and Address Organization Details Recorded Time 05/13/2021 text/html Annual GYNReport ed bypatient.Menstrua l cycle:Normal menses Urinary symptoms:No hematuria; No incontinence Vulva:No genital lesion Vagina:Normal vaginal discharge Breast:No breast pain; No breast lump; No nipple discharge Current Contraception:Sati sfied with current contraception; Monogamous relationship; Condoms Sexual complaints:No sexual complaints; No pain during intercourse; Normal libido Menopausal Symptoms:No menopausal symptoms; Normal vaginal lubrication Psychological symptoms:No depression; No anxiety; No PMDD Preventive measures:Encourage self breast examination; Encourage regular exercise; Encourage no tobacco use; Encourage regular mammograms starting age 40; Followed with Q3 year pap smear and high risk HPV typing; Needs to schedule mammogram; Needs to schedule colonoscopy Slime Worthington, [facility]- [address], [place], [address], [facility] 05/13/2021 11:07:02 05/02/2024 text/html Annual GYNReport ed bypatient.History: no gynecologic complaints Menstrual cycle:Irregular cycle intervals(q20-40 days);Perimenopaus al Urinary symptoms:No hematuria; No incontinence Vulva:No genital lesion Vagina:Normal vaginal discharge Breast:No breast pain; No breast lump; No nipple discharge Current Contraception:Cond oms Sexual complaints:No sexual complaints; No pain during intercourse; Normal libido Menopausal Symptoms:Normal vaginal lubrication;Hot flashes Psychological symptoms:No depression; No anxiety; No PMDD Preventive measures:Encourage self breast examination; Encourage regular exercise; Encourage no tobacco use; Encourage regular mammograms starting age 40; Needs to schedule mammogram; Needs to schedule colonoscopy Patient presents for annual well woman exam. Patient denies concerns today.Pt cycles irregular, every 20 to 40 days. Patient reports occasional hot flashes that are not bothersome. Margarita ellington, [facility] 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 Status 05/13/20 21 1 CLOSED Fetus Data First Name Last Name Admitted to NICU Weight (g) Sex Living Outcome Pediatric Complications Fetus ID Race Codes Race Delivery Type F [id number] Vaginal Delivery Joe Calculation Initial Joe Date Initial Exam Date Initial Exam Provider Initial Ultrasound Date Last Menstrual Period Date Ultra Sound Weeks Gestation 0 Eighteen To Twenty Week Joe Update Ultra Sound Date Fundal Height At Umbil Quickening Date Ultra Sound Latest Weeks Gestation Final Joe Confirmed By Final Joe Confirmed Date Final Joe Date Ultra Sound Latest Days Gestation 0 0 Menstrual History Last Menstrual Date Menses Monthly On Bcp Conception Prior Menses Frequency Hcg Plus Date Menarche Onset Age Delivery Information Delivery Date Delivery Type Labor Anesthesia Weeks Gestation Incision Type Labor Labor Length Hrs Delivered By Post Complications Tubal Sterilization Discharge Date Comments 4 Discharge Information Feeding Method Contraceptive Method Maternal HG B and HCT Levels Ob Episode Information Episode Created Date Number of Fetuses Patient Bloodtype Patient rh Status Prepregnancy Weight lbs Domestic Partner Domestic Partner Phone Father Name [place] 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 Status 05/13/20 21 1 CLOSED Fetus Data First Name Last Name Admitted to NICU Weight (g) Sex Living Outcome Pediatric Complications Fetus ID Race Codes Race Delivery Type M [id number] Primary Joe Calculation Initial Joe Date Initial Exam Date Initial Exam Provider Initial Ultrasound Date Last Menstrual Period Date Ultra Sound Weeks Gestation 0 Eighteen To Twenty Week Joe Update Ultra Sound Date Fundal Height At Umbil Quickening Date Ultra Sound Latest Weeks Gestation Final Joe Confirmed By Final Joe Confirmed Date Final Joe Date Ultra Sound Latest Days Gestation 0 0 Menstrual History Last Menstrual Date Menses Monthly On Bcp Conception Prior Menses Frequency Hcg Plus Date Menarche Onset Age Delivery Information Delivery Date Delivery Type Labor Anesthesia Weeks Gestation Incision Type Labor Labor Length Hrs Delivered By Post Complications Tubal Sterilization Discharge Date Comments 7 Discharge Information Feeding Method Contraceptive Method Maternal HG B and HCT Levels
--- OUTSIDE RECORDS SUMMARY | 2025-01-08 08:29 | XMS_ITS | Clinical Summary ---
Author Organization [facility] Address [address] [place] [address] Care Team Providers Care Pneumatic Tube Fitter Name Role Phone Marcos Hooker MD Primary Care Provider Allergies Active Allergy Reactions Criticality Noted Date Comments Cefprozil Hives High 12/27/2018 Codeine Rash Low 12/27/2018 Sulfamethoxazole-Trimethoprim Rash Low 2018 Medications multivitamin (DAILY-MEHRAN) tablet Take 1 Tablet by mouth daily. Active FERROUS SULFATE ORAL Take by mouth. Active Active Problems Problem Noted Date Diagnosed Date Gynecomastia, female 02/09/2019 Macromastia 02/09/2019 Lump in upper inner quadrant of right breast 08/2018 Abnormal ultrasound of breast 12/27/2018 Abnormal mammogram of right breast 12/27/2018 Social History Tobacco Use Types Packs/Day Years Used Date Smoking Tobacco: Never Smokeless Tobacco: Never Alcohol Use Standard Drinks/Week Comments Not Currently 0 (1 standard drink = 0.6 oz pur e alcohol) Comments No Sex and Gender Information Value Date Recorded Sex Assigned at Not on file Legal Sex Female 2:48 PM [employer] Gender Identity Not on file Sexual Orientation Not on file Last Filed Vital Signs Vital Sign Reading Time Taken Comments Blood Pressure 148/91 02/13/2019 1:38 PM CDT Pulse 96 02/13/2019 1:38 PM CDT Temperature 37.1 C (98.7 F) 02/13/2019 1:38 PM CDT Respiratory Rate - - Oxygen Saturation 96% 02/13/2019 1:38 PM CDT Inhaled Oxygen Concentration - - Weight 68 kg (149 lb 14.4 oz) 02/13/2019 1:38 PM CDT Height 167.6 cm (5' 6) 02/13/2019 1:38 PM CDT Body Mass Index 24.19 02/13/2019 1:38 PM CDT Plan of Treatment Health Maintenance Due Date Last Done Comments DTAP/TDAP/TD VACCINES (1 - Tdap) 1991 HEPATITIS B VACCINES (1 of 3 - 19+ 3-dose series) 1991 HPV/Cotest (21-29) 1993 CERVICAL CANCER SCREENING 2002 HPV/Cotest (30-65) 2002 PAP SMEAR 2002 COLORECTAL SCREENING 2017 Colorectal Cancer Screening 2017 FIT-DNA Q 3 years 2017 FIT/FOBT Q 1 year 2017 Flex Sig/CT Colonography Q 5 years 2017 BREAST CANCER SCREENING 11/07/2019 11/07/19 19, 05/01/2018, 04/24/2018, Additional history exists ZOSTER VACCINE (1 of 2) 2022 INFLUENZA VACCINE (#1) 2025 Procedures Procedure Name Priority Date/Time Associated Diagnosis Comments MAMMO UNILATERAL DIAG RIGHT Routine 11/06/2018 from Last 3 Months or Most Recently Relevant to Health Maintenance Results * MAMMO UNILATERAL DIAG RIGHT (11/06/2018) Anatomical Region Laterality Modality Breast Right Mammography us Abstract Provider MAMMO ORDERABLES Final Result from Last 3 Months or Most Recently Relevant to Health Maintenance Care Teams Pneumatic Tube Fitter Relationship Specialty Start Date End Date Marcos Hooker MD [address] [place] [phone] PCP - General Family Practice 12/27/18
--- NOTE | 2025-01-08 09:01 | S_PTH ---
PATIENT: Meera Cristobal LOC: [facility] U#:[id number] AGE/SX: 54/F ROOM: RE01/08/[address]: Carmel Cespedes MD : 1970 BED: DIS: 01/08/2025 SPEC #: [id number] RECD: 01/08/25 09:12 STATUS: ANGI REChio #: [id number] GERALDO: 01/08/25 09:[address]: Carmel Cespedes DEPT: [facility] Surgical RECD BY: Ladonna Castelan ENTERED: 01/08/25 09:12 SP TYPE: Surgical OTHR DR: Afshan Jang, FIELD HAND Tissues: A - Breast Biopsy Procedures: Hematoxylin and Eosin Stain Gross and Microscopic Level 4
== END 2025-01-08 08:20 | disposition home or self-care (01) ==
PROVIDERS: PCP Student in an Organized Health Care Education/Training Program; Visit Provider Surgery
DX: N63.11 Unspecified lump in the right breast, upper outer quadrant (principal); Z91.89 Other specified personal risk factors, not elsewhere classified
CPT/HCPCS: 19083; 77065; 88305; A4648